=== PATIENT | male | born 2000 | race Hispanic/Latino ===

== ENCOUNTER 2021-09-30 14:59 | Emergency (ER) | payer BC ==
--- NOTE | 2021-09-30 16:19 | Emergency Department Report ---
ED ENT HPI - General Chief complaint: Earache Stated complaint: EAR INFECTION Time Seen by Provider: 09/30/21 16:09 Source: patient Mode of arrival: Ambulatory Limitations: No Limitations - History of Present Illness Initial comments: 21-year-old male presents to the ER today with complaints of right ear pain. Patient states that he has had current congestion and rhinorrhea for about 1 week and then yesterday started having pain in the right ear. He denies any drainage from the ear. He reports no coughing, fever, chills or any additional symptoms at this time. MD complaint: ear pain -: days(s) (1) - Related Data Previous Rx's Medication Instructions Recorded Last Taken Type Amoxicillin [Trimox CAP] 500 mg PO Q8H #30 capsule 09/30/21 Unknown Rx Fluticasone [Flonase] 2 spray NS QDAY #1 bottle 09/30/21 Unknown Rx Ibuprofen [Motrin] 600 mg PO Q8H PRN #30 tablet 09/30/21 Unknown Rx Loratadine [Claritin] 10 mg PO DAILY #30 tab 09/30/21 Unknown Rx Pseudoephedrine HCl [Sudafed 240 mg PO QDAY #30 tab 09/30/21 Unknown Rx 24-Hour] ED Dental HPI - General Chief complaint: Earache Stated complaint: EAR INFECTION Time Seen by Provider: 09/30/21 16:09 Source: patient Mode of arrival: Ambulatory Limitations: No Limitations - Related Data Previous Rx's Medication Instructions Recorded Last Taken Type Amoxicillin [Trimox CAP] 500 mg PO Q8H #30 capsule 09/30/21 Unknown Rx Fluticasone [Flonase] 2 spray NS QDAY #1 bottle 09/30/21 Unknown Rx Ibuprofen [Motrin] 600 mg PO Q8H PRN #30 tablet 09/30/21 Unknown Rx Loratadine [Claritin] 10 mg PO DAILY #30 tab 09/30/21 Unknown Rx Pseudoephedrine HCl [Sudafed 240 mg PO QDAY #30 tab 09/30/21 Unknown Rx 24-Hour] ED Review of Systems ROS: Stated complaint: EAR INFECTION Other details as noted in HPI Comment: All other systems reviewed and negative Constitutional: denies: chills, diaphoresis, fever, malaise, weakness Eyes: denies: eye pain, eye discharge, vision change ENT: ear pain. denies: dental pain, hearing loss, epistaxis, congestion Respiratory: denies: cough, shortness of breath, SOB with exertion, SOB at rest, wheezing Cardiovascular: denies: chest pain, palpitations, edema, syncope, paroxysmal nocturnal dyspnea Gastrointestinal: denies: abdominal pain, nausea, diarrhea, constipation, hematemesis, hematochezia Genitourinary: denies: urgency, dysuria, frequency, hematuria, discharge, testicular pain, testicular mass Musculoskeletal: denies: back pain, joint swelling, arthralgia Skin: denies: rash, lesions, change in color, change in hair/nails, pruritus Neurological: denies: headache, weakness, numbness, paresthesias, confusion, abnormal gait, vertigo Psychiatric: denies: anxiety, depression, auditory hallucinations, visual hallucinations, homicidal thoughts, suicidal thoughts Hematological/Lymphatic: denies: easy bleeding, easy bruising, swollen glands ED Past Medical Hx - Medications Home Medications: Home Medications Medication Instructions Recorded Confirmed Last Taken Type Amoxicillin [Trimox CAP] 500 mg PO Q8H #30 capsule 09/30/21 Unknown Rx Fluticasone [Flonase] 2 spray NS QDAY #1 bottle 09/30/21 Unknown Rx Ibuprofen [Motrin] 600 mg PO Q8H PRN #30 tablet 09/30/21 Unknown Rx Loratadine [Claritin] 10 mg PO DAILY #30 tab 09/30/21 Unknown Rx Pseudoephedrine HCl [Sudafed 240 mg PO QDAY #30 tab 09/30/21 Unknown Rx 24-Hour] ED Physical Exam - General Limitations: No Limitations General appearance: alert, in no apparent distress - Head Head exam: Present: atraumatic, normocephalic, normal inspection - Eye Eye exam: Present: normal appearance, PERRL, EOMI Pupils: Present: normal accommodation - Expanded ENT Exam Expanded TM/Canal exam: Erythema: Right TM, Bulging: Right TM, Effusion: Right TM Mouth exam: Present: normal external inspection Teeth exam: Present: normal inspection Throat exam: Positive: normal inspection - Neck Neck exam: Present: normal inspection, full ROM. Absent: meningismus - Respiratory Respiratory exam: Present: normal lung sounds bilaterally. Absent: respiratory distress, wheezes, rales, rhonchi, stridor - Cardiovascular Cardiovascular Exam: Present: regular rate, normal rhythm, normal heart sounds - Neurological Exam Neurological exam: Present: alert, oriented X3, CN II-XII intact, normal gait - Psychiatric Psychiatric exam: Present: normal affect, normal mood - Skin Skin exam: Present: intact ED Course Vital Signs 09/30/21 16:06 Temperature 98.6 F Pulse Rate 81 Respiratory 18 Rate Blood Pressure 129/53 [Right] O2 Sat by Pulse 99 Oximetry Critical care attestation.: If time is entered above; I have spent that time in minutes in the direct care of this critically ill patient, excluding procedure time. ED Disposition Clinical Impression: Otitis media, Allergic rhinitis Disposition: HOME / SELF CARE / HOMELESS Is pt being admited?: No Does the pt Need Aspirin: No Condition: Stable Instructions: Otitis Media, Adult, [id number], Allergic Rhinitis, Adult, [id number] Additional Instructions: Take the medications as prescribed. Take the motrin to help with pain. Follow up with your PCP. Return to ED if worse. Prescriptions: Loratadine [Claritin] 10 mg PO DAILY #30 tab Fluticasone [Flonase] 2 spray NS QDAY #1 bottle Ibuprofen [Motrin] 600 mg PO Q8H PRN #30 tablet PRN Reason: Pain Pseudoephedrine HCl [Sudafed 24-Hour] 240 mg PO QDAY #30 tab Amoxicillin [Trimox CAP] 500 mg PO Q8H #30 capsule Referrals: BRENNAN MACEDO MD [Staff Physician] - 3-5 Days Time of Disposition: 16:18
[2021-09-30 16:31] VITALS: BP 140/69
== END 2021-09-30 17:15 | disposition home or self-care (01) ==
LOC: ED 14:59
DX: H66.91 Otitis media, unspecified, right ear (principal); J30.9 Allergic rhinitis, unspecified
CPT/HCPCS: 99282